=== PATIENT | female | born 1955 | race Caucasian/White ===

== ENCOUNTER 2018-09-03 20:26 | Emergency (ER) | payer MEDICARE ==
[~2018-09-03] VITALS: Ht 170.2 cm; Wt 83.6 kg
[2018-09-03 20:35] VITALS: Ht 170.2 cm; Wt 83.6 kg
[2018-09-03] MEDS ORDERED: XARELTO20 MG PO (20:38)
[2018-09-03] MEDS ORDERED: ZOLOFT100 MG PO (20:39)
[2018-09-03] MEDS ORDERED: CYCLOBENZAPRINE10 MG PO (20:45)
[2018-09-03] MEDS ORDERED: NEURONTIN 300300 MG PO (20:46)
[2018-09-03] MEDS ORDERED: K-DUR20 MEQ PO (20:46)
[2018-09-03] MEDS ORDERED: HYDROCODON-ACE1 EA10 (20:46)
[2018-09-03] MEDS ORDERED: LASIX40 MG PO (20:46)
[2018-09-03] MEDS ORDERED: ULTRAM50 MG PO (20:46)
[2018-09-03 22:25] LABS: BASOPHILS 0.2 % (0-2); EOSINOPHILS 1.9 % (0-7); HEMATOCRIT 37.9 % (36.0-48.0); HEMOGLOBIN 12.1 g/dL (12-16); IMMATURE GRANULOCYTES 0.2 % (0-5); LYMPHOCYTES 30.4 % (15-50); MCH 25.8 pg (26.0-34.0); MCHC 31.9 g/dL (31.0-37.0); MCV 80.8 fL (80.0-100.0); MEAN PLATELET VOLUME 10.5 fL (7.4-10.4); MONOCYTES 10.6 % (2-11); NEUTROPHILS 56.7 % (40-80); PLATELET COUNT 204 10x3/uL (130-400); RBC 4.69 10x6/uL (4.00-5.40); RDW 17.9 % (11.5-14.5); WBC 4.8 10x3/uL (4.8-10.8)
[2018-09-03 22:35] LABS: ALBUMIN 2.2 g/dL (3.4-5.0); ANION GAP 15.3 mmol/L (8-16); BILIRUBIN - TOTAL 0.67 mg/dL (0.2-1.3); CALCIUM 8.4 mg/dL (8.5-10.1); CARBON DIOXIDE 25.9 mmol/L (21.0-32.0); CREATININE - SERUM 1.2 mg/dL (0.6-1.3); POTASSIUM - SERUM 3.2 mmol/L (3.5-5.1); PROTEIN - SERUM 6.6 g/dL (6.4-8.2)
[2018-09-03] MEDS ORDERED: AUGMENTIN 875-11 TAB PO (23:35)
[2018-09-04 00:21] VITALS: BP 78/44
== END 2018-09-04 00:22 | disposition home or self-care (01) ==
LOC: D.ER 20:26
PROVIDERS: Family Medicine
DX: T87.81 Dehiscence of amputation stump (principal)